=== PATIENT | female | born 1970 | race Caucasian/White ===

== ENCOUNTER 2019-07-04 18:43 | Emergency (ER) | payer BC, MEDICAID ==
[~2019-07-04] VITALS: Ht 157.5 cm; Wt 53.5 kg
[~2019-07-04 18:43] MED LIST: NO REPORTABLE MEDS
--- NOTE | 2019-07-04 19:05 | NUR ---
PT CAME IN FOR MIDSTERNAL CHEST PAIN ON AND OFF X 2 WEEKS. GOT WORSE TODAY RADIATING TO BACK AND NECK. +NAUSEA, +CHILLS. PT AAOX4, VSS, NO ACUTE DISTRESS NOTED. PT CONNECTED TO THE PERSONNEL MANAGER AND POX.
[2019-07-04] MEDS ORDERED: IV NS 0.9% 1,000 ML BAG IV ONE (19:30)
[2019-07-04] MEDS ORDERED: ASPIRIN 325 MG TABLET PO ONE (19:30)
[2019-07-04] MEDS ORDERED: diphenhydrAMINE HCL 50 MG/ML VIAL IV ONE (19:30)
[2019-07-04] MEDS ORDERED: METOCLOPRAMIDE HCL 10 MG/2 ML VIAL IV ONE (19:30)
[2019-07-04] MEDS ORDERED: diphenhydrAMINE HCL 50 MG/ML VIAL ONE (19:35)
[2019-07-04] MEDS ORDERED: METOCLOPRAMIDE HCL 10 MG/2 ML VIAL ONE (19:35)
[2019-07-04] MEDS ORDERED: ASPIRIN 325 MG TABLET ONE (19:35)
[2019-07-04 19:36] LABS: BASOPHILS % (AUTO) 0.5 % (0.0-2.0); EOSINOPHILS % (AUTO) 0.6 % (0.0-6.0); HEMATOCRIT 38 % (33-45); HEMOGLOBIN 13.2 g/dL (11.5-14.8); LYMPHOCYTES # (AUTO) 1.5 /CMM (0.8-4.8); LYMPHOCYTES % (AUTO) 18.8 % (20.0-44.0); MEAN CORPUSCULAR HGB CONC 35 g/dl (31.0-36.0); MEAN CORPUSCULAR VOLUME 100 fL (82-100); MONOCYTES # (AUTO) 0.5 /CMM (0.1-1.30); MONOCYTES % (AUTO) 6.7 % (2.0-12.0); NEUTROPHILS # (AUTO) 5.9 /CMM (1.8-8.9); NEUTROPHILS % (AUTO) 73.4 % (43.0-81.0); PLATELET COUNT (AUTO) 182 /CMM (150-450); RED BLOOD CELL COUNT(AUTO) 3.81 MIL/uL (4.0-5.2); WHITE BLOOD COUNT (AUTO) 8.1 K/uL (4.3-11.0)
[2019-07-04 19:42] LABS: CARBON DIOXIDE 27 mmol/L (21-32); CHLORIDE 93 mmol/L (98-107); CREATININE 0.8 mg/dL (0.6-1.3); GLUCOSE 136 mg/dL (74-106); POTASSIUM 3.7 mmol/L (3.5-5.1); SODIUM SERUM 128 mmol/L (136-145); UREA NITROGEN, BLOOD 20 mg/dL (7-18)
[2019-07-04 21:50] VITALS: BP 121/84
--- NOTE | 2019-07-04 21:50 | NUR ---
Patient discharged to home in stable condition. Written and verbal after care instructions given. Patient verbalizes understanding of instruction.IV removed. Catheter intact and site benign. Pressure and 4x4 applied to site. No bleeding noted.
== END 2019-07-04 21:52 | disposition home or self-care (01) ==
LOC: ER 18:43
DX: R07.89 Other chest pain (principal); G40.909 Epilepsy, unspecified, not intractable, without status epilepticus; F17.200 Nicotine dependence, unspecified, uncomplicated; Z88.6 Allergy status to analgesic agent; Z88.1 Allergy status to other antibiotic agents; Z88.8 Allergy status to other drugs, medicaments and biological substances
CPT/HCPCS: 36415; 71045; 80048; 84484; 84703; 85025; 96374; 96375; 99284; J1200; J2765; J7030